=== PATIENT | male | born 1960 | race Caucasian/White ===

== ENCOUNTER 2021-11-19 11:49 | Day surgery (SDCO) | payer OTHER ==
[~2021-11-19] VITALS: Ht 185.4 cm; Wt 82.6 kg
[2021-11-19 12:24] LABS: BASOPHIL 0.1 % (0-2); EOSINOPHIL 1.2 % (0-5); HCT 27.6 % (42.0-52.0); HGB 9.3 g/dl (13.2-18.0); LYMPHOCYTE 17.3 % (15-48); MCH 31.4 pg (25.0-31.0); MCHC 33.7 g/dL (32.0-36.0); MCV 93.2 fL (78.0-100.0); MONOCYTE 5.5 % (0-12); MPV 10.5 fL (6.0-9.5); NEUTROPHIL 75.3 % (41-80); NRBC 0.2; PLT 415 K/uL (150-400); RBC 2.96 M/uL (4.70-6.00); RDW 24.6 % (11.5-14.0); WBC 9.1 K/uL (4.0-10.5)
[2021-11-19 12:39] LABS: BUN/CREAT RATIO (CALC) 11.4 RATIO; CREATININE 0.88 mg/dL (0.67-1.17); POTASSIUM 3.7 mmol/L (3.5-5.1)
[2021-11-19 12:46] LABS: LACTIC ACID 1.2 mmol/L (0.4-1.9)
[2021-11-19] MEDS ORDERED: CIPRO500 MG PO (15:59)
[2021-11-20 06:25] LABS: HCT 24.7 % (42.0-52.0); HGB 8.3 g/dl (13.2-18.0); MCHC 33.6 g/dL (32.0-36.0); MCV 92.2 fL (78.0-100.0); MPV 9.9 fL (6.0-9.5); RBC 2.68 M/uL (4.70-6.00); WBC 8.9 K/uL (4.0-10.5)
[2021-11-20 06:51] LABS: BUN/CREAT RATIO (CALC) 11.7 RATIO; CREATININE 0.94 mg/dL (0.67-1.17); POTASSIUM 3.9 mmol/L (3.5-5.1)
[2021-11-20] MEDS ORDERED: NORCO 5-325 TA1 EACH PO (11:09)
[2021-11-20] MEDS ORDERED: BACTRIM DS TAB1 EACH PO (11:09)
== END 2021-11-20 13:25 | disposition home or self-care (01) ==
LOC: FER 11:49 → FMS 14:30
PROVIDERS: Nurse Practitioner Acute Care; Nurse Practitioner Family; ADMIT Internal Medicine
DX: L02.212 Cutaneous abscess of back [any part, except buttock and flank] (principal); K21.9 Gastro-esophageal reflux disease without esophagitis; D64.9 Anemia, unspecified; E78.00 Pure hypercholesterolemia, unspecified; Z79.899 Other long term (current) drug therapy; Z20.822 Contact with and (suspected) exposure to COVID-19
CPT/HCPCS: 36415; 71260; 80048; 83605; 85025; 87040; 87070; 87075; 87077; 87186; 87205; G0378; J1170; J1885; J2250; J2405; J2543; J2704; J3010; J3370; J7050; J7120; Q9967; U0002

== ENCOUNTER 2021-11-24 11:28 | Inpatient (IN) | payer OTHER ==
[~2021-11-24] VITALS: Ht 185.4 cm; Wt 80.9 kg
[~2021-11-24 11:28] MED LIST: BACTRIM DS TAB1 EACH PO; CIPRO500 MG PO; NORCO 5-325 TA1 EACH PO
[2021-11-24 12:18] LABS: BASOPHIL 0.2 % (0-2); EOSINOPHIL 1.2 % (0-5); HCT 26.5 % (42.0-52.0); HGB 8.9 g/dl (13.2-18.0); LYMPHOCYTE 9.3 % (15-48); MCH 30.8 pg (25.0-31.0); MCHC 33.6 g/dL (32.0-36.0); MCV 91.7 fL (78.0-100.0); NRBC 0.3; PLT 601 K/uL (150-400); RBC 2.89 M/uL (4.70-6.00); RDW 24.8 % (11.5-14.0)
[2021-11-24 12:22] LABS: WBC 9.2 K/uL (4.0-10.5)
[2021-11-24 12:37] LABS: ALBUMIN 3.6 g/dL (3.4-5.0); BILIRUBIN - TOTAL 0.4 mg/dL (0.2-1.0); BUN/CREAT RATIO (CALC) 8.7 RATIO; CREATININE 1.5 mg/dL (0.67-1.17); GLOBULIN (CALCULATION) 4.8 g/dL; POTASSIUM 4.6 mmol/L (3.5-5.1); TOTAL PROTEIN 8.4 g/dL (6.4-8.2)
[2021-11-24] MEDS ORDERED: NORCO 5-325 TA1 EACH PO (16:29)
[2021-11-24] MEDS ORDERED: SULFAMETHOXAZO1 EACH PO (16:31)
[2021-11-25 05:16] LABS: INR 1.28 (0.9-1.2); PROTHROMBIN TIME 15.3 SECONDS (11.8-13.4); PTT 32.7 SECONDS (24.4-34.7)
[2021-11-25 05:19] LABS: BASOPHIL 0.4 % (0-2); EOSINOPHIL 3.1 % (0-5); HCT 24.2 % (42.0-52.0); HGB 8.3 g/dl (13.2-18.0); LYMPHOCYTE 10.2 % (15-48); MCH 31.6 pg (25.0-31.0); MCHC 34.3 g/dL (32.0-36.0); MONOCYTE 5.4 % (0-12); NEUTROPHIL 79.8 % (41-80); NRBC 0.3; PLT 504 K/uL (150-400); RBC 2.63 M/uL (4.70-6.00); RDW 24.7 % (11.5-14.0); WBC 7.9 K/uL (4.0-10.5)
[2021-11-25 05:39] LABS: ALBUMIN 2.9 g/dL (3.4-5.0); BILIRUBIN - TOTAL 0.4 mg/dL (0.2-1.0); BUN/CREAT RATIO (CALC) 11.2 RATIO; CREATININE 1.25 mg/dL (0.67-1.17); GLOBULIN (CALCULATION) 4.1 g/dL; MAGNESIUM 1.8 mg/dL (1.8-2.4); PHOSPHORUS 3.4 mg/dL (2.6-4.7); POTASSIUM 4.1 mmol/L (3.5-5.1)
--- NOTE | 2021-11-25 16:47 | NUR ---
11/25/21 Mr. Cueto lives at home with his spouse. He is independent and employed. The couple are able to meet their financial obligations. - No needs are anticipated.
--- NOTE | 2021-11-25 19:29 | NUR ---
[address] PATIENTS GAGGED TUBE OUT INTO MOUTH. DECIDED DID NOT WANT NG. REQUESTED MORE PAIN MEDS. PATIENT ASKED IF "IF i COULD PUT ADDITIONAL DILAUDID IN THE SYRINGE". i TOLD HIM NO THAT THAT WAS ILLEGAL. TOLD DR MACHUCA OF REQUEST FOR ADDITIONAL PAIN MEDS AND REFUSAL OF NG TUBE.
[2021-11-26 08:33] LABS: BASOPHIL 0.3 % (0-2); EOSINOPHIL 0.9 % (0-5); HCT 26.5 % (42.0-52.0); HGB 8.8 g/dl (13.2-18.0); LYMPHOCYTE 10.3 % (15-48); MCH 31.4 pg (25.0-31.0); MCHC 33.2 g/dL (32.0-36.0); MCV 94.6 fL (78.0-100.0); MONOCYTE 5.2 % (0-12); MPV 11.2 fL (6.0-9.5); NEUTROPHIL 82.3 % (41-80); NRBC 0.2; PLT 465 K/uL (150-400); WBC 11.9 K/uL (4.0-10.5)
[2021-11-26 09:10] LABS: ALBUMIN 3.1 g/dL (3.4-5.0); BILIRUBIN - TOTAL 0.5 mg/dL (0.2-1.0); BUN/CREAT RATIO (CALC) 14.8 RATIO; CREATININE 1.15 mg/dL (0.67-1.17); GLOBULIN (CALCULATION) 4.5 g/dL; POTASSIUM 4.1 mmol/L (3.5-5.1); TOTAL PROTEIN 7.6 g/dL (6.4-8.2)
--- NOTE | 2021-11-27 00:08 | NUR ---
11/27/21 @ 0000 BLADDER SCAN SHOWED PT HAS 150ML IN HIS BLADDER.
[2021-11-27 03:49] LABS: BASOPHIL 0.3 % (0-2); EOSINOPHIL 0.3 % (0-5); HCT 26.5 % (42.0-52.0); HGB 8.2 g/dl (13.2-18.0); LYMPHOCYTE 10.5 % (15-48); MCH 30.7 pg (25.0-31.0); MCHC 30.9 g/dL (32.0-36.0); MONOCYTE 5.6 % (0-12); MPV 10.9 fL (6.0-9.5); NEUTROPHIL 81.3 % (41-80); PLT 494 K/uL (150-400); RBC 2.67 M/uL (4.70-6.00); RDW 25.7 % (11.5-14.0); WBC 13.7 K/uL (4.0-10.5)
[2021-11-27 03:52] LABS: MCV 99.3 fL (78.0-100.0)
[2021-11-27 04:13] LABS: ALBUMIN 2.4 g/dL (3.4-5.0); BILIRUBIN - TOTAL 0.5 mg/dL (0.2-1.0); BUN/CREAT RATIO (CALC) 17.6 RATIO; CREATININE 1.48 mg/dL (0.67-1.17); GLOBULIN (CALCULATION) 3.8 g/dL; MAGNESIUM 1.7 mg/dL (1.8-2.4); POTASSIUM 4.7 mmol/L (3.5-5.1); TOTAL PROTEIN 6.2 g/dL (6.4-8.2)
[2021-11-27 15:13] LABS: RETICULOCYTE COUNT 1.9 % (1.0-2.0)
[2021-11-27 15:23] LABS: IRON % SATURATION 12.5 %SAT (20-50)
[2021-11-27 23:52] LABS: BILIRUBIN NEGATIVE (NEGATIVE); BLOOD NEGATIVE Ery/uL (NEGATIVE); CLARITY CLEAR (CLEAR); COLOR YELLOW (YELLOW); GLUCOSE (U) NORMAL (NORMAL); LEUKOCYTES NEGATIVE Leu/uL (NEGATIVE); NITRITE POSITIVE (NEGATIVE); PROTEIN NEGATIVE (NEGATIVE); SPECIFIC GRAVITY >=1.030 (1.001-1.030); UROBILINOGEN 0.2 mg/dL (0.2-1.0)
[2021-11-27 23:56] LABS: BACTERIA 2+
[2021-11-28 03:29] LABS: BASOPHIL 0.1 % (0-2); EOSINOPHIL 2.2 % (0-5); HCT 17.9 % (42.0-52.0); LYMPHOCYTE 16.8 % (15-48); MCH 31.6 pg (25.0-31.0); MCV 95.7 fL (78.0-100.0); MONOCYTE 4.9 % (0-12); MPV 10.5 fL (6.0-9.5); NRBC 0.3; PLT 399 K/uL (150-400); RBC 1.87 M/uL (4.70-6.00); RDW 25.4 % (11.5-14.0); WBC 8.6 K/uL (4.0-10.5)
[2021-11-28 03:42] LABS: HGB 5.9 g/dl (13.2-18.0)
[2021-11-28 03:47] LABS: BUN/CREAT RATIO (CALC) 16.8 RATIO; CREATININE 1.19 mg/dL (0.67-1.17); POTASSIUM 4.3 mmol/L (3.5-5.1)
[2021-11-28 10:17] LABS: HCT 21.3 % (42.0-52.0); HGB 6.9 g/dL (13.2-18.0)
[2021-11-29 06:53] LABS: BASOPHIL 0.3 % (0-2); EOSINOPHIL 2.5 % (0-5); HCT 20.8 % (42.0-52.0); LYMPHOCYTE 15.7 % (15-48); MCHC 33.7 g/dL (32.0-36.0); MONOCYTE 3.3 % (0-12); MPV 10.3 fL (6.0-9.5); NEUTROPHIL 75.9 % (41-80); NRBC 0.3; PLT 488 K/uL (150-400); RBC 2.26 M/uL (4.70-6.00); RDW 23.2 % (11.5-14.0); WBC 9.4 K/uL (4.0-10.5)
[2021-11-29 07:07] LABS: BUN/CREAT RATIO (CALC) 13.6 RATIO; CREATININE 1.03 mg/dL (0.67-1.17); POTASSIUM 3.4 mmol/L (3.5-5.1)
--- NOTE | 2021-11-29 18:21 | NUR ---
1700 NGTUBE HAS BEEN REMOVED WITHOUT ANY PROBLEMS PER ORDERS WILL MONITOR FOR CHANGES.
[2021-11-30 06:36] LABS: BASOPHIL 0.3 % (0-2); EOSINOPHIL 2.1 % (0-5); HCT 20.2 % (42.0-52.0); HGB 6.8 g/dl (13.2-18.0); LYMPHOCYTE 14.2 % (15-48); MCH 31.1 pg (25.0-31.0); MCHC 33.7 g/dL (32.0-36.0); MCV 92.2 fL (78.0-100.0); MONOCYTE 3.4 % (0-12); MPV 9.8 fL (6.0-9.5); NEUTROPHIL 77.8 % (41-80); NRBC 0.3; PLT 538 K/uL (150-400); RBC 2.19 M/uL (4.70-6.00); WBC 8.9 K/uL (4.0-10.5)
[2021-11-30 07:04] LABS: BUN/CREAT RATIO (CALC) 13.1 RATIO; CREATININE 0.99 mg/dL (0.67-1.17); MAGNESIUM 1.7 mg/dL (1.8-2.4); POTASSIUM 3.2 mmol/L (3.5-5.1)
[2021-12-01 07:31] LABS: BASOPHIL 0.4 % (0-2); EOSINOPHIL 2.2 % (0-5); HCT 20.7 % (42.0-52.0); LYMPHOCYTE 15.1 % (15-48); MCH 30.8 pg (25.0-31.0); MCHC 33.8 g/dL (32.0-36.0); MCV 91.2 fL (78.0-100.0); MONOCYTE 3.7 % (0-12); MPV 9.9 fL (6.0-9.5); NEUTROPHIL 75.9 % (41-80); NRBC 0.6; PLT 582 K/uL (150-400); RBC 2.27 M/uL (4.70-6.00); RDW 22.6 % (11.5-14.0); WBC 8.5 K/uL (4.0-10.5)
[2021-12-01 07:59] LABS: BUN/CREAT RATIO (CALC) 12.9 RATIO; CREATININE 0.93 mg/dL (0.67-1.17); PHOSPHORUS 2.6 mg/dL (2.6-4.7); POTASSIUM 3.6 mmol/L (3.5-5.1)
[2021-12-02] MEDS ORDERED: PERCOCET 5-3251 EACH PO (15:22)
== END 2021-12-02 16:00 | disposition home or self-care (01) | DRG 330 ==
LOC: FER 11:28 → FTCU 14:51 → FMS 14:51 → FTCU 17:48 → FMS 11-28 06:23
PROVIDERS: Emergency Medicine; Internal Medicine; ADMIT Surgery
PROC: 0DQ80ZZ Repair Small Intestine, Open Approach (ICD-10-PCS; 2021-11-26)
PROC: 0DN80ZZ Release Small Intestine, Open Approach (ICD-10-PCS; 2021-11-26)
PROC: 0DQV0ZZ Repair Mesentery, Open Approach (ICD-10-PCS; 2021-11-26)
PROC: 0DB80ZZ Excision of Small Intestine, Open Approach (ICD-10-PCS; principal; 2021-11-26 11:30)
PROC: 30233N1 Transfusion of Nonautologous Red Blood Cells into Peripheral Vein, Percutaneous Approach (ICD-10-PCS; 2021-11-28)
DX: K46.0 Unspecified abdominal hernia with obstruction, without gangrene (principal); N17.9 Acute kidney failure, unspecified; K91.89 Other postprocedural complications and disorders of digestive system; K56.7 Ileus, unspecified; K91.71 Accidental puncture and laceration of a digestive system organ or structure during a digestive system procedure; L02.212 Cutaneous abscess of back [any part, except buttock and flank]; K52.9 Noninfective gastroenteritis and colitis, unspecified; E86.0 Dehydration; K21.9 Gastro-esophageal reflux disease without esophagitis; D50.9 Iron deficiency anemia, unspecified; R82.998 Other abnormal findings in urine; Z88.1 Allergy status to other antibiotic agents; Z98.890 Other specified postprocedural states; Z88.5 Allergy status to narcotic agent
CPT/HCPCS: 36415; 36430; 74018; 74019; 74250; 80048; 80053; 81001; 82607; 82746; 83540; 83550; 83605; 83690; 83735; 84100; 84145; 85014; 85018; 85025; 85610; 85730; 86850; 86900; 86901; 86922; 94667; 94668; C9113; J0780; J1100; J1170; J1885; J1956; J2060; J2250; J2405; J2543; J2704; J2710; J2916; J3010; J3475; J3480; J7030; J7040; J7050; J7120; P9016; Q9967